=== PATIENT | female | born 1990 | race Caucasian/White ===

== ENCOUNTER 2024-09-19 16:11 | Observation (INO) | payer OTHER, SELFPAY ==
[2024-09-19 16:22] VITALS: BP 108/57; BMI 31.7
[2024-09-19 16:50] LABS: Urine Albumin Negative (Neg - Trace); Urine Bilirubin Negative (Negative); Urine Character Clear (Clear); Urine Color Yellow; Urine Glucose Negative (Negative); Urine Ketone Negative (Negative); Urine Leukocyte Negative (Negative); Urine Nitrite Negative (Negative); Urine Occult Blood 1+ (Negative); Urine Urobilinogen 2+ (Neg - 1+)
[2024-09-19] MEDS: LR 1000 IV ×2 (16:51→17:39)
[2024-09-19 16:55] LABS: % Basophils 0.4 % (0-2); % Eosinophils 0.5 % (0-6); % Immature Granulocytes 0.9 % (0-0.5); % Lymphocytes 22.6 % (20.5-51.1); % Monocytes 5.3 % (1.7-9.3); % Neutrophils 70.3 % (42.2-75.2); Absolute Immature Granulocytes 0.1 10^3/uL (0-0.05); Absolute Lymphocytes 1.9 10^3/uL (1.2-3.4); Absolute Monocytes 0.4 10^3/uL (0.1-0.6); Absolute Neutrophils 5.8 10^3/uL (1.4-6.5); Hematocrit 30.1 % (37.0-47.0); Hemoglobin 10.9 g/dL (12.0-16.0); Mean Corp Hgb Conc. 36.2 g/dL (33.0-37.0); Mean Corpuscular Hgb 30.3 pg (27.0-31.0); Mean Corpuscular Volume 83.6 fL (81.0-99.0); Mean Platelet Volume 11.3 fL (7.4-10.4); Nucleated Red Blood Cells % 0 %; Platelet Count 151 10^3/uL (130-400); Red Cell Dist. Width 13.4 % (11.5-14.5); White Blood Cell Count 8.2 10^3/uL (4.8-10.8)
[2024-09-19 17:03] LABS: ALT (SGPT) 13 U/L (0-35); AST (SGOT) 21 U/L (14-36); Albumin 3.4 g/dl (3.5-5.0); Alkaline Phosphatase 100 U/L (38-126); Amylase 58 U/L (30-110); Blood Urea Nitrogen 5 mg/dl (7-17); Calcium 8.9 mg/dl (8.4-10.2); Carbon Dioxide 21 mmol/L (22-30); Chloride 108 mmol/L (98-107); Estimated Creatinine Clearance > 125 ml/min; Glucose 95 mg/dl (70-99); Lipase 65 U/L (23-300); Potassium 3.3 mmol/L (3.5-5.1); Sodium 136 mmol/L (135-145); Total Bilirubin 0.8 mg/dl (0.2-1.3); Total Protein 5.9 g/dl (6.3-8.2); eGFR > 60.00
[2024-09-19 17:15] LABS: Urine Amorphous Seen; Urine Bacteria Few (Negative); Urine Calcium Oxalate Crystals Present; Urine Red Blood Cell 0-2 /HPF (0-2); Urine Squamous Cell 0-2 /LPF (Few); Urine White Cell 0-2 /HPF (0-5)
[2024-09-19] MEDS: MORPHINE SULFATE 1 MG IV (18:41)
[2024-09-20] MEDS: LR 1000 IV (01:52)
[2024-09-20] MEDS: MORPHINE SULFATE 1 MG IV (01:53)
== END 2024-09-20 09:47 | disposition home or self-care (01) ==
LOC: LDRP 16:11
PROVIDERS: ADMITTING PHYSICIAN Obstetrics & Gynecology
DX: O26.893 Other specified pregnancy related conditions, third trimester (principal); Z3A.29 29 weeks gestation of pregnancy; R10.9 Unspecified abdominal pain; R11.0 Nausea; R51.9 Headache, unspecified; Z28.310 Unvaccinated for COVID-19
CPT/HCPCS: 76700; 80053; 81003; 81015; 82150; 83690; 85025; G0378

== ENCOUNTER 2024-12-03 07:20 | Inpatient (IN) | payer OTHER, SELFPAY ==
[2024-12-03 07:37] VITALS: BP 117/81; BMI 33.1
[2024-12-03 08:11] LABS: Hematocrit 34.9 % (37.0-47.0); Hemoglobin 12.0 g/dL (12.0-16.0); Mean Corp Hgb Conc. 34.4 g/dL (33.0-37.0); Mean Corpuscular Volume 77.9 fL (81.0-99.0); Nucleated Red Blood Cells % 0 %; Platelet Count 144 10^3/uL (130-400); Red Cell Dist. Width 15.6 % (11.5-14.5)
[2024-12-03] MEDS: PITOCIN 30 UNITS/NSS 500 ML IV (10:34)
[2024-12-03] MEDS: MOTRIN 600 MG PO (20:46)
[2024-12-03] MEDS: COLACE 100 MG PO (20:46)
[2024-12-03] MEDS: TYLENOL 650 MG PO (20:47)
[2024-12-04 04:04] LABS: Hematocrit 31.1 % (37.0-47.0); Hemoglobin 10.5 g/dL (12.0-16.0)
[2024-12-04] MEDS: TYLENOL 650 MG PO (04:19)
[2024-12-04] MEDS: MOTRIN 600 MG PO (04:19)
[2024-12-04] MEDS: COLACE 100 MG PO (07:44)
[2024-12-04] MEDS: PRENATAL PLUS 1 TABLET PO (07:45)
[2024-12-04] MEDS: FEOSOL 325 MG PO (10:16)
[2024-12-07 14:19] LABS: Syphilis/T. pallidum Ab Reflex Negative (Negative)
== END 2024-12-04 14:06 | disposition home or self-care (01) | DRG 807 ==
LOC: LDRP 07:20
PROVIDERS: ADMITTING PHYSICIAN Student in an Organized Health Care Education/Training Program
PROC: 10E0XZZ Delivery of Products of Conception, External Approach (ICD-10-PCS; 2024-12-03)
PROC: 0HQ9XZZ Repair Perineum Skin, External Approach (ICD-10-PCS; 2024-12-03)
PROC: 10907ZC Drainage of Amniotic Fluid, Therapeutic from Products of Conception, Via Natural or Artificial Opening (ICD-10-PCS; 2024-12-03)
DX: O77.0 Labor and delivery complicated by meconium in amniotic fluid (principal); Z37.0 Single live birth; Z3A.39 39 weeks gestation of pregnancy; O69.1XX0 Labor and delivery complicated by cord around neck, with compression, not applicable or unspecified; O76 Abnormality in fetal heart rate and rhythm complicating labor and delivery; O70.0 First degree perineal laceration during delivery; Z80.3 Family history of malignant neoplasm of breast; Z28.310 Unvaccinated for COVID-19
CPT/HCPCS: 85014; 85018; 85025; 86780; 86850; 86900; 86901; 88307